=== PATIENT | female | born 1990 | race Caucasian/White ===

== ENCOUNTER 2017-06-26 17:21 | Emergency (ER) | payer MEDICAID, SELFPAY ==
[2017-06-26 17:23] VITALS: BP 113/56; PULSE 99; RESP 16; TEMP 37.1; O2SAT 99; BMI 28.5
[2017-06-26] MEDS: 0.9% Normal Saline 1,000 ML 250 ML IV (17:47)
[2017-06-26] MEDS: Ondansetron 4 MG/2 ML Vial IV (17:53)
[2017-06-26 17:57] LABS: Absolute Neutrophil Count 5.4 X10^3/uL (2.0-7.7); Basophil# 0.01 X10^3/uL; Basophil% 0.1 % (0-1); Eosinophil# 0.06 X10^3/uL; Eosinophils% 0.7 % (0-5); Hematocrit 37.7 % (37-47); Hemoglobin 12.1 g/dl (12.0-15.0); Lymphocyte % 22.4 % (19-41); Mean Corp Hgb Conc 32.1 g/gl (32-36); Mean Corpuscular Hgb 25.3 pg (27.0-32.0); Mean Corpuscular Volume 78.9 fL (81-99); Mean Platelet Vol. 11.1 fl (6.2-12.0); Monocyte# 0.74 X10^3/uL; Monocyte% 9.2 % (0-10); Neutrophil # 5.42 X10^3/uL (2.7-7.7); Neutrophil % 67.5 % (47-70); Platelet Count 216 K/mm3 (150-450); RBC Distribution Width CV 14.7 % (11.6-14.6); Red Blood Count 4.78 M/mm3 (4.2-5.4)
[2017-06-26 18:01] LABS: POSITIVE COUNT NO; POSITIVE DIFFERENTIAL NO; POSITIVE MORPHOLOGY NO
[2017-06-26 18:09] LABS: Red Blood Cells-Urine 0 SEEN /hpf (0-5)
[2017-06-26 18:21] LABS: Color, Urine Yellow (Yellow); Glucose, Dipstick Normal (Normal); Ketone-Dipstick Negative (Negative); Leukocyte Esterase-Dipstick 25 /ul (Negative); Nitrite-Dipstick Negative (Negative); Occult Blood-Urine 50 /ul (Negative); Protein-Dipstick Negative (Negative); Urine Bilirubin Dipstick Negative (Negative); Urine Clarity Sl. Cloudy (Clear); Urine Urobilinogen Normal (Normal)
[2017-06-26 18:33] LABS: AST(SGOT) 13 U/L (15-37); Alanine Aminotransfer ALT/SGPT 20 U/L (13-56); Albumin, Serum 3.9 g/dL (3.2-5.0); Alkaline Phosphatase 83 U/L (45-117); Anion Gap 8 (5-15); BUN 13 mg/dL (7-18); BUN/Creat Ratio 17.7 RATIO (10-20); Bilirubin, Direct < 0.05 mg/dL (0.00-0.30); Calcium,Total 8.7 mg/dL (8.5-10.1); Chloride 109 mmol/L (98-107); Creatinine, Serum 0.74 mg/dL (0.55-1.02); EST Glomerular Filtration Rate 102 mL/min (>60); Est Glom Filt Rate - Afr Amer 124 mL/min (>60); Globulin 3.6 g/dL (2.2-4.2); Glucose 93 mg/dL (74-106); Lipase 183 U/L (73-393); Potassium 3.8 mmol/L (3.5-5.1); Pregnancy, Serum, hCG Quali. NEGATIVE Negative (0-9 Nonpreg); Protein, Total 7.5 g/dL (6.4-8.2); Sodium Level 142 mmol/L (136-145); Total Bilirubin < 0.10 mg/dL (0.20-1.00)
--- NOTE | 2017-06-26 18:37 | ED.VISSUMM ---
- ER Visit Summary Date of Service: 06/26/17 Chief Complaint: Abdominal pain with nausea History of Present Illness: The patient is a 27 F who presents with upper abdominal pain and nausea for days. Pain is worse today. She does complain of frequency and breast tenderness. Last normal menstrual period 6-7 weeks ago. She states she normally has a period every 4 weeks. She also reports she has a implant right arm. She denies orthostatic symptoms. She denies fever, chills night sweats. She denies any visual, ocular auditory symptoms. She denies chest pain or palpitations. Denies shortness of breath, cough or dyspnea on exertion. She denies dysuria, urgency or hematuria. She does complain of back pain. She denies myalgias arthralgias. She denies rash. She denies headache, weakness, anesthesia, paresthesia or motor weakness. She denies polyuria, polydipsia or polyphagia. She denies bruising easily. She denies hives. She denies any vaginal bleeding or vaginal discharge. She states she has had pain with intercourse for 1 years since delivery of her child. Physical Examination: Vital signs are unremarkable. She appears slightly uncomfortable. Head is atraumatic normocephalic. Pupils are equal round reactive. Extraocular muscles are intact. TMs are pearly white with landmarks noted. Nares patent with no drainage. Posterior pharynx without erythema or exudate. Uvula is midline. There is no dysphonia or dysphasia. Trachea is midline. There is no stridor with auscultation of the neck. Heart is regular without murmur, gallop or rub. S1 and S2 are normal. Lungs are clear to auscultation with good movement of air bilaterally. Abdomen is remarkable for significant tenderness right and left upper quadrant with an equivocal clinical Farooq sign. There is also tenderness lower abdomen. There is no CVA tenderness noted. There is no skin lesions noted. Neuro exam is nonfocal. Test Results: CBC is normal other than an MCV of 78. BMP, hepatic and lipase normal. UA is unremarkable and a contaminated specimen. Serum test is negative. Emergency Department Course and Treatment: To evaluate patient's abdominal pain and the fact that she missed her last menses CBC, BMP, hepatic and lipase were ordered as well as a serum test. She was medicated with morphine and Zofran. Because she complains of frequency a UA was obtained. Patient was reassessed at 1851. She states she had no improvement after 4 mg of Zofran 4 mg of morphine IV push. She was given 20 mg of Bentyl. She was reassessed at 1941. She states her pain is markedly better. Treatment Plan: Prescription for Bentyl and outpatient follow-up with Dr. Mejia Disposition: Discharged to home in stable and improved condition Impression: Generalized abdominal pain of uncertain etiology This note was generated with Enbridge dictation software. It may contain incorrect words, spelling, and punctuation that were not noted in review of the chart prior to signing ED Disposition - Plan for ED Patient: Disposition: Home or Assisted Living Chief Complaint: Abd Pain Instructions: ED Abdominal Pain Unkn Cause Prescriptions: Dicyclomine HCl [Bentyl] 20 mg PO TIDAC #20 cap Referrals: Gume Mejia MD [Primary Care Provider] - 3-5 Days if not improving Additional Instructions: Your prescription was electronically transmitted to [facility]
[2017-06-26 18:47] LABS: Squamous Epithelial Cells - UA 5-10 SEEN /hpf (5-10); White Blood Cells 0-5 SEEN /hpf (0-5)
[2017-06-26 18:48] LABS: Bacteria 1+ /hpf (None Seen); Mucous, Urine 2+ /hpf (<or=2+)
[2017-06-26] MEDS: Dicyclomine 10 MG Capsule 20 MG PO (19:08)
[2017-06-26 19:59] VITALS: BP 114/90; PULSE 84; RESP 18; O2SAT 98
== END 2017-06-26 20:01 | disposition home or self-care (01) ==
PROVIDERS: Emergency Provider Emergency Medicine; Family Provider Family Medicine; PCP Family Medicine
DX: R10.84 Generalized abdominal pain (principal); R11.0 Nausea; R35.0 Frequency of micturition; F32.9 Major depressive disorder, single episode, unspecified; Z79.899 Other long term (current) drug therapy
CPT/HCPCS: 80048; 80076; 81001; 83690; 84703; 85025; 96361; 96374; 99283; J7030; A4216

== ENCOUNTER 2018-06-03 09:44 | Day surgery (SDC) | payer MEDICAID, SELFPAY ==
--- NOTE | 2018-05-19 12:59 | PCM.HP.BLA ---
History and Physical Date of Admission: 05/19/18 Pre-Op History and Physical HPI: The patient is a 27 year old female presenting for pre-operative visit. She is scheduled for laparascopic bilateral salpingectomy, for sterilization on 06/03/18. Procedure discussed along with risks, benefits and complications. Other alternatives discussed for management. Consent form signed? Yes. PAST MEDICAL HISTORY Diagnosis Date ? Anemia affecting 06/06/2014 ? Anxiety ? Panic disorder PAST SURGICAL HISTORY Procedure Laterality Date ? DELIVERY ONLY 08/24/14 , low transverse ? SECTION HX February 2013 ? HYSTEROSCOPY, DIAGNOSTIC (SEPARATE 12/12/2016 Hysteroscopy D&C, TruClear ? INSERTION OF IUD 02/2015 ? REMOVE IUD 06/2015 Current Outpatient Medications: Etonogestrel-Ethinyl Estradiol (NUVARING) 0.12-0.015 mg/24 hr vaginal ring Use 1 Each vaginally as directed. INSERT ONE(1) RING VAGINALLY AND LEAVE IN PLACE FOR THREE WEEKS, THEN REMOVE FOR 1 WEEK. Disp: 1 Each Rfl: 11 busPIRone (BUSPAR) 5 mg tablet Take 1 tablet by mouth three times daily. Disp: 90 tablet Rfl: 1 No current facility-administered medications for this visit. ALLERGIES: Latex; Tape [Adhesive Tape (Rosins)] PERSONAL HISTORY: Social History Socioeconomic History Marital status: Spouse name: Not on file Number of children: 2 Years of education: Not on file Highest education level: Not on file Social Needs Financial resource strain: Not on file Food insecurity - worry: Not on file Food insecurity - inability: Not on file Transportation needs - medical: Not on file Transportation needs - non-medical: Not on file Occupational History Not on file Tobacco Use Smoking status: Current Every Day Smoker Packs/day: 0.05 Smokeless tobacco: Never Used Substance and Sexual Activity Alcohol use: No Drug use: No Sexual activity: Yes Partners: Male control/protection: Other Comment: Nexplanon Other Topics Concerns: Not on file Social History Narrative Not on file FAMILY HISTORY: FAMILY HISTORY Problem Relation Age of Onset ? Diabetes Mother ? Arthritis Mother ? Heart Father Open heart surgery ? Diabetes Maternal Grandmother ? Diabetes Maternal Grandfather ? Heart Maternal Grandfather ? Pancreatic Cancer Maternal Grandfather ? Heart Paternal Grandmother ? Stroke Paternal Grandmother ? Pancreatic Cancer Paternal Grandfather ? Heart Daughter Murmer ? Asthma Son REVIEW OF SYMPTOMS: GENERAL: denies fevers or chills ENDOCRINOLOGY: has not been on steroids Cardiology : denies palpitations or chest pain Respiratory: denies SOB or cough Hematology: denies history of prolonged bleeding or easy bruising or VTE Allergy: Denies history of personal or family history of allergy to anesthesia PHYSICAL EXAMINATION: VITALS: Blood pressure 102/62, pulse 84, resp. rate 16, height 5' 2.75 (1.594 m), weight 152 lb (68.9 kg), last menstrual period 04/30/2018. GENERAL: The patient is well nourished, well hydrated in no acute distress. , The patient is oriented to time, place, and person. NECK: Supple. No lynphadenopathy, normal thyroid, no thyromegaly. LUNGS: Clear to auscultation bilaterally. no wheezes, rhonchi or rales HEART: Regular rate and rhythm, Normal heart sounds and No murmurs or gallops IMPRESSION: sterilization request PLAN: The risks/benefits/alternatives and personal involved for the planned laparoscopic bilateral salpingectomy were reviewed with the patient. Her questions were answered to her satisfaction and she desires to proceed. Consent was signed. I reviewed with her postop instructions and expectations. I have reviewed and updated past medical and surgical history, medications and allergies This H&P performed in my office 05/19/18 Earline Garcias M.D. No clinically relevant updates since entered
--- NOTE | 2018-06-03 | FALS_PTH ---
PATIENT: GOPI FRY LOC: [facility] [place] U#:[id number] AGE/SX: 27/ ROOM: RE06/03/[address]: Dr. Earline Garcias MD : 1990 BED: DIS: 06/03/2018 SPEC #: [id number] RECD: 06/03/18 13:11 STATUS: CHYNA ADELAIDA #: [id number] TALYA: 06/03/18 00:[address]: Earline Garcias DEPT: SURGICAL PATHOLOGY RECD BY: Jose Lee ENTERED: 06/03/18 13:12 SP TYPE: FALL TUBES OTHR DR: Dr. Gume Mejia MD Tissues: Fallopian tube Procedures: Surgery Specimen Level II HEADER OPERATION: Laparoscopic salpingectomy PRE-OP DIAGNOSIS: Sterilization request TISSUE SUBMITTED: Bilateral fallopian tubes MICROSCOPIC DIAGNOSIS Right and left fallopian tubes, bilateral salpingectomies: Two complete segments of fallopian tubes with no pathologic change. AM:artem 06/04/18 MICROSCOPIC DESCRIPTION Slides are reviewed. GROSS DESCRIPTION Received is one container labeled with the patient's name and designated bilateral fallopian tubes. The specimen consists of bilateral fallopian tubes including fimbrial ends. One fallopian tube measures 7 cm in length and 0.5 cm in diameter. The fimbrial end is identified. Sections reveal unremarkable cut surfaces. The second fallopian tube received in three pieces and measures 6 cm in length and up to 0.5 cm in diameter. The fimbrial end is identified. Sections reveal unremarkable cut surfaces. Research Staff Member sections are submitted in two cassettes with each cassette containing one fallopian tube. / SJ:artem 06/03/18 TC:4 CPT: 61696 x2
[2018-06-03 10:10] LABS: Internal QC Validated? YES +Cl - CLEAR BKGD; Pregnancy, Urine Negative Negative
[2018-06-03 10:14] LABS: Hematocrit 40.9 % (37-47); Hemoglobin 13.2 g/dl (12.0-15.0); Mean Corp Hgb Conc 32.3 g/gl (32-36); Mean Corpuscular Hgb 24.8 pg (27.0-32.0); Mean Corpuscular Volume 76.7 fL (81-99); Mean Platelet Vol. 11.6 fl (6.2-12.0); Platelet Count 252 K/mm3 (150-450); RBC Distribution Width CV 15.4 % (11.6-14.6); RBC Distribution Width SD 43.2 fl (35.1-43.9); Red Blood Count 5.33 M/mm3 (4.2-5.4); White Blood Count 7.4 K/mm3 (4.4-11.0)
[2018-06-03 10:17] LABS: Scan Indicated on CBC? Y/N NO
[2018-06-03 10:34] VITALS: BP 109/77; PULSE 91; RESP 16; O2SAT 98; BMI 28.0
[2018-06-03] MEDS: Bupivacaine 0.5% PF 10 ML VIAL (12:00)
--- NOTE | 2018-06-03 12:26 | PCM.OPRPT ---
Report of Operation Date of Procedure: 06/03/18 Pre-Operative Diagnosis: Sterilization request Post-Operative Diagnosis: Same Surgery/Procedure Performed:: Laparoscopic bilateral salpingectomy Description of Surgical Findings:: Normal-appearing uterus, tubes and ovaries. Otherwise unremarkable peritoneal cavity. sterile process coordinator: cari Turner ms3 Type of Anesthesia:: General Anesthesiologist: Tod Tolliver Special Medications: none Specimen's removed: Bilateral fallopian tubes Drains: None Estimated Blood Loss (mL): 10 Description of Procedure: The patient was taken to the operating room where she was prepped and draped in the dorsolithotomy position. A weighted speculum was placed in the vagina and the anterior lip of the cervix was grasped with a tenaculum. The Michelle uterine manipulator was placed and the remainder of the instruments were removed from the vagina. Attention was turned to the abdomen. All port sites were infiltrated with 0.5% Marcaine before skin incisions were made. A 5 mm intraumbilical incision was made. The anterior abdominal wall was tented up with 2 towel clamps while a 5 mm blade less trocar and sleeve were directly inserted. Intraperitoneal placement was confirmed with the laparoscope. The pneumoperitoneum was created and the underlying abdominal contents were intact. The patient was placed in Trendelenburg. Right and left lower quadrant ports were placed under direct visualization lateral to the inferior epigastric vessels. The bowel was swept away and the above findings were noted. The LigaSure device was used to clamp seal and transect the antimesenteric portions of the right tube to the cornual insertion of the uterus. The tube was amputated from the uterus and the pedicles were all confirmed to be hemostatic. The same procedure was performed on the contralateral side. The specimens were brought out through a 5 mm port. The pedicles were again examined and found to be hemostatic. The lateral ports were removed under direct visualization and no active bleeding was noted. The pneumoperitoneum was released. The skin incisions were closed with Monocryl suture in a subcuticular fashion and skin glue. The vaginal instruments were removed and the vaginal sweep was completed by me. The procedure was performed by me with assistance other than as dictated above. All sponge and needle counts were correct and the patient was taken to the recovery room in stable condition. Grafts/Implants Used: None - Complications None - Admit VTE Documentation VTE Present on Admission: No VTE Mechan Device Prophylaxis: SCD's VTE Pharm Prophylaxis ordered?: No Reason prophylaxis not ordered:: Procedure Not Indicated
[2018-06-03 12:30] VITALS: BP 109/77; BP 115/76; PULSE 96; RESP 28; TEMP 36.3; O2SAT 97
[2018-06-03 12:45] VITALS: BP 109/77; BP 115/72; PULSE 68; RESP 18; O2SAT 100
[2018-06-03 13:00] VITALS: BP 109/77; BP 114/70; PULSE 65; RESP 18; O2SAT 99
[2018-06-03] MEDS: Ketorolac 30 MG/ML Syringe IV (13:07)
[2018-06-03 13:14] VITALS: BP 109/77; BP 96/51; PULSE 66; RESP 18; TEMP 36.9; O2SAT 99
[2018-06-03] MEDS: HYDROcodone Bitartrate/Apap 5/325 Tablet PO (13:32)
--- NOTE | 2018-06-03 14:43 | DCINST_ITS ---
Discharge Diet: No Restrictions - Increase fluid intake for the next 48 hours. Discharge Activity: Return to Normal Activity, May Drive - when you are no longer taking pain/narcotic meds., May Shower, May Take a Tub Bath - in 7 days Additional Activity Instructions:: Ambulate often the next week after surgery. Nothing in the vagina for 5 days. Call your doctor if your incision/area has: Continuous Slow Oozing, Sudden Increased Bleeding, Increased Pain/ Swelling, Increased Redness, Foul Smelling Discharge Call your doctor if you observe: Fever of 101 or Higher Allergies/Adverse Reactions: Allergies adhesive Allergy (Verified 05/27/18 11:14) Rash latex Allergy (Verified 05/27/18 11:14) Hives TAPE Allergy (Uncoded 06/26/17 17:23) Other Medications to take at Discharge Hydroxyzine HCl 25 mg PO DAILY 05/27/18 Hydrocodone/Acetaminophen [Brinson 5-325 Tablet] 1 each PO Q6H PRN PRN 4 Days #12 tablet 06/03/18 Ibuprofen [Motrin] 600 mg PO Q6H PRN #60 tablet 06/03/18 The following prescriptions were given: Hydrocodone/Acetaminophen [Brinson 5-325 Tablet] 1 each PO Q6H PRN PRN 4 Days #12 tablet PRN Reason: Pain Ibuprofen [Motrin] 600 mg PO Q6H PRN #60 tablet PRN Reason: Pain Primary Care Physician: Gume Mejia MD [Primary Care Provider] - Test Results: Test results from this visit will be discussed in further detail at your follow- up appointment, if applicable. Please Follow Up With: Earline Garcias MD - [phone] When: Dr. Garcias's office 2-4 weeks or as needed
[2018-06-03 14:48] VITALS: BP 109/77; BP 112/65; PULSE 64; RESP 16; TEMP 36.8; O2SAT 98
== END 2018-06-03 14:51 | disposition home or self-care (01) ==
LOC: SDC 09:45 → AC 09:46
PROVIDERS: Family Provider Family Medicine; PCP Family Medicine; Referring Provider Obstetrics & Gynecology; Visit Provider Obstetrics & Gynecology
PROC: (CPT 58661; principal; 2018-06-03 10:55)
DX: Z30.2 Encounter for sterilization (principal); D64.9 Anemia, unspecified; F32.9 Major depressive disorder, single episode, unspecified; F41.9 Anxiety disorder, unspecified; F41.0 Panic disorder [episodic paroxysmal anxiety]; F17.200 Nicotine dependence, unspecified, uncomplicated; Z79.899 Other long term (current) drug therapy; Z87.442 Personal history of urinary calculi; Z87.440 Personal history of urinary (tract) infections
CPT/HCPCS: 58661; 36415; 81025; 85027; 88302; J7120; J2405

== ENCOUNTER 2021-03-12 08:55 | Outpatient (CLI) | payer MEDICAID, SELFPAY ==
[2021-03-12 10:46] LABS: Hematocrit 36.4 % (37-47); Hemoglobin 11.3 g/dL (12.0-15.0); Mean Corpuscular Hgb 23.6 pg (27.0-32.0); Mean Platelet Vol. 12.3 fl (6.2-12.0); Platelet Count 235 K/mm3 (150-450); RBC Distribution Width CV 16.2 % (11.6-14.6); RBC Distribution Width SD 45.2 fl (35.1-43.9); Red Blood Count 4.79 M/mm3 (4.2-5.4); White Blood Count 5.7 K/mm3 (4.4-11.0)
[2021-03-12 12:33] LABS: Estradiol 34.5 pg/mL; Follicle Stimulating Hormone 5.2 mIU/mL; Prolactin 7.1 ng/mL; T4 Free Direct 0.96 ng/dL (0.76-1.46); Thyroid Stim Hormone (TSH) 1.18 uIU/mL (0.358-3.74)
[2021-03-14 13:05] LABS: Testosterone Free 4.1 pg/mL (0.0-4.2)
== END 2021-03-12 23:59 | disposition short-term general hospital (02) ==
LOC: WOBLAB 08:57
PROVIDERS: PCP Family Medicine; Visit Provider Obstetrics & Gynecology
DX: N93.9 Abnormal uterine and vaginal bleeding, unspecified (principal)
CPT/HCPCS: 36415; 82670; 83001; 83002; 84146; 84402; 84439; 84443; 85027; 87086; 87088; 87186

== ENCOUNTER 2021-04-30 13:08 | Outpatient (CLI) | payer MEDICAID, SELFPAY ==
--- NOTE | 2021-04-30 | EMB_PTH ---
PATIENT: GOPI FRY LOC: [facility] U#:[id number] AGE/SX: 30/F ROOM: RE04/30/[address]: Dr. Frank Mckeon MD : 1990 BED: DIS: 04/30/2021 SPEC #: [id number] RECD: 04/30/21 13:38 STATUS: CHYNA REShira #: [id number] TALYA: 04/30/21 00:[address]: Frank Mckeon DEPT: SURGICAL PATHOLOGY RECD BY: Bernie Mendoza ENTERED: 04/30/21 13:38 SP TYPE: ENDOM BX/C RAHUL DR: Dr. Gume Mejia MD Tissues: Endometrium, NOS Procedures: Surgery Specimen Level IV HEADER OPERATION: Endometrial biopsy PRE-OP DIAGNOSIS: Abnormal uterine bleeding TISSUE SUBMITTED: Endometrial biopsy MICROSCOPIC DIAGNOSIS Endometrial biopsy: Proliferative endometrium. SJ:artem 05/01/2021 MICROSCOPIC DESCRIPTION Slides are reviewed. GROSS DESCRIPTION Received in fixative is one container labeled with the patient's name and designated endometrial biopsy. The specimen consists of multiple irregular fragments of pink soft tissue that in aggregate measure 2 x 2 x 0.2 cm. The specimen is totally submitted in one cassette. / SJ:artem 04/30/2021 TC:5 CPT: 40574
== END 2021-04-30 23:59 | disposition home or self-care (01) ==
LOC: LABSPEC 13:09
PROVIDERS: PCP Family Medicine; Visit Provider Obstetrics & Gynecology
DX: N93.9 Abnormal uterine and vaginal bleeding, unspecified (principal)
CPT/HCPCS: 88305

== ENCOUNTER 2021-08-26 06:48 | Day surgery (SDC) | payer MEDICAID, SELFPAY ==
[2021-08-26] VITALS (13 sets, daily range): BP systolic 96–126; BP diastolic 67–94; PULSE 68–102; RESP 16–20; TEMP 36.3–36.7; O2SAT 94–100; BMI 29.9
[2021-08-26] MEDS: Lactated Ringers 1,000 ML 15 ML IV (06:55)
--- NOTE | 2021-08-26 08:01 | PCM.HP.BLA ---
History and Physical Date of Admission: 08/26/21 Surgical History and Physical Date: 08/26/2021 Name: GOPI BARTHOLOMEW Age: 31 Date of : 1990 Gopi Bartholomew, a 31 year old female 2 0 2 0 2, presents for Hysteroscopy D, Endometrial ablation on 08/26/21 at 9;30. -- Gopi is here for a hysteroscopy D&C lindsay ablation. MEDICATIONS HISTORY: ALLERGIES: Latex, Generalized rash, Adhesive and Generalized rash Infections - Chicken pox Accidents - None Hospitalizations - surgery Review of Systems: GENERAL - Denies fever, or chills SKIN - Denies skin changes EYES - Denies visual changes EARS - Denies difficulty hearing NOSE - Denies nasal congestion or bleeding MOUTH - Denies sore throat or difficulty swallowing NECK - Denies pain or swelling RESPIRATORY - Denies shortness of breath or wheezing CARDIOVASCULAR - Denies palpitations or chest pain GASTROINTESTINAL - Denies nausea, vomiting, diarrhea, constipation GENITOURINARY - cramping MUSCULOSKELETAL - Denies joint or muscle pain NEUROLOGICAL - Denies localized numbness or weakness PSYCHIATRIC - Denies depression or anxiety ENDOCRINE - Denies heat or cold intolerance, weight loss or gain HEMATO-IMMUNOLOGIC - Denies excessive bleeding with cuts SOCIAL HISTORY: Alcohol Use - drinks occasionally Smoking - Advised to quit Diet - no special diet Lifestyle - high stress lifestyle Seat Belt Use - always 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 08/24/2014 csection ; - 2. 08/24/2014 csection ; - 3. 02/10/2018 cyst removal ; - 4. tubal 2019 ; - PHYSICAL EXAM BP- 122/66 Weight- 161.06192 lbs Height- 61 inch BMI:[id number] CONSTITUTIONAL - NAD, well nourished, and well developed SKIN - No rash, lesions, or ulcers HEENT - Normocephalic, PERRLA, EOMI NECK - No nodes, no nuchal rigidity and thyroid normal size and texture LYMPH NODES - Palpation of lymph nodes in neck and groins within normal limits ABDOMEN - Without hepatosplenomegaly, distention, masses, rebound, or guarding; normal bowel sounds; no hernias EXTREMITIES - No edema or calf tenderness NEUROLOGICAL - Cranial nerves II-XII grossly intact PSYCHIATRIC - A and O to time, place, person, mood and affect External Genital Vagina - non-tender without lesions Urethra/Urethral Meatus - non-tender Bladder - non-tender Vagina - vaginal mueller are pink and moist without loss of rugae and no evidence of atrophy Cervix - without cervical motion tenderness and has normal size and features without evident lesions Uterus - 5-6 cm in size, mobile and nontender Adnexa - clear without masses or tenderness ASSESSMENT/PLAN: 1. Abnormal Uterine And Vaginal Bleeding, Unspecified Patient with long history of abnormal uterine bleeding. Has menses been as bleeding midcycle. This is been worse since her Nexplanon was placed 3 years ago and removed 3 years ago. No other medical changes Educated patient on abnormal uterine bleeding. Patient believes she was diagnosed with PCOS years ago Exam benign. Labs within normal limits. Ultrasound within normal limits, polycystic ovaries EMB negative 2. Encounter For Other Preprocedural Examination Scheduled for hysteroscopy, dilation and curettage, endometrial ablation via Lindsay for abnormal uterine bleeding Educated patient on risk benefits alternatives. Patient stated understanding and wished to proceed. All questions were answered and consent was signed Educated patient on postoperative recovery. Discussed cramping and abnormal bleeding Follow-up 2 weeks postoperatively
--- NOTE | 2021-08-26 08:38 | DCINST_ITS ---
Discharge Instructions Diet Discharge Diet: No restrictions Activity Discharge Activity: Return to Normal Activity, May Drive and May Shower May resume sexual activity in: 4-6 weeks Weight Bearing Status: Weight bearing as tolerated Dressing / Incision Call your doctor if your incision/area has: Continuous Slow Oozing and Foul Smelling Discharge Call your doctor if you observe: Fever of 101 or Higher, Shortness of breath and Chest pain Follow Up Care Please Follow Up With: Frank Mckeon MD When: 2 weeks post op Test Results: Test results from this visit will be discussed in further detail at your follow- up appointment, if applicable. Discharge Plan Admission Attending Provider: Frank Mckeon Primary Care Provider: Gume Mejia Discharge Orders/Prescriptions Prescriptions: No Action NK Referrals / Follow Up: Gume Mejia MD [Primary Care Provider] - Disposition Disposition (needs filled in before D/C Order can be placed): Home, Self Care
--- NOTE | 2021-08-26 08:39 | PCM.OPRPT ---
Report of Operation Date of Procedure: 08/26/21 Pre-Operative Diagnosis: Abnormal uterine bleeding Post-Operative Diagnosis: Abnormal uterine bleeding Surgery/Procedure Performed:: Hysteroscopy, Kirsty endometrial ablation Description of Surgical Findings:: Surgeon: Frank Mckeon MD Anesthesia: MAC EBL: Minimal Urine output: 10 cc none IV fluids: 500 cc Specimen: None Complications: None Findings: Pre and Post procedure hysteroscopy with no pathology. Kirsty device set to 4.5 cm in length. Kirsty ablation for 2 minutes. Consent: Patient with abnormal uterine bleeding desires hysteroscopy, endometrial elation via Kirsty. Patient understands risk of the procedure include but are not limited to visceral or vascular injury, prolonged hospitalization, blood loss need for transfusion, reoperation. Patient states understanding and wished to proceed. All questions were answered and consent was signed. Procedure: Patient was brought back to the OR where MAC anesthesia was found to be adequate. Patient was prepared and draped in a dorsal lithotomy position with yellowfin stirrups. Weighted speculum was placed in the posterior aspect of the vagina. Cervical dilators were used to dilate the cervix. Hysteroscope was inserted and above findings were noted. Cavity length found to be 4.5 cm. Kirsty device opened and set to appropriate length. Kirsty device inserted under direct visualization. Kirsty endometrial ablation safety test passed x2. Kirsty endometrial ablation for 2 minutes. Kirsty device safely removed. Post procedure hysteroscopy performed and above findings were noted. Good hemostasis was noted. All counts were correct x2. Patient tolerated procedure well and was brought to recovery in stable condition.
[2021-08-26] MEDS: Acetaminophen 500 MG Tablet 1000 MG PO (09:34)
== END 2021-08-26 11:40 | disposition home or self-care (01) ==
LOC: SDC 06:52 → AC 06:53
PROVIDERS: PCP Family Medicine; Referring Provider Obstetrics & Gynecology; Visit Provider Obstetrics & Gynecology
PROC: 0U5B8ZZ Destruction of Endometrium, Via Natural or Artificial Opening Endoscopic (ICD-10-PCS; CPT 58558; principal; 2021-08-26 07:15)
DX: N93.9 Abnormal uterine and vaginal bleeding, unspecified (principal); E28.2 Polycystic ovarian syndrome
CPT/HCPCS: 58563; 00952; J7120; J2405

== ENCOUNTER → 2021-09-05 | Outpatient (CLI) | payer MEDICAID, SELFPAY | END | disposition home or self-care (01) | PROVIDERS: PCP Family Medicine; Visit Provider Obstetrics & Gynecology | DX: N76.0 Acute vaginitis (principal) ==

== ENCOUNTER 2022-05-05 01:12 | Emergency (ER) | payer MEDICAID, SELFPAY ==
[2022-05-05 01:13] VITALS: BP 121/89; PULSE 73; RESP 14; TEMP 36.9; O2SAT 99; BMI 33.3
[2022-05-05 01:56] LABS: Bedside Glucose 97 mg/dL (74-106)
--- NOTE | 2022-05-05 02:20 | EKG12_ITS ---
Test Reason : SYNCOPE Blood Pressure : / mmHG Vent. Rate : 062 BPM Atrial Rate : 062 BPM P-R Int : 150 ms QRS Dur : 082 ms QT Int : 414 ms P-R-T Axes : 038 057 036 degrees QTc Int : 420 ms Normal sinus rhythm with sinus arrhythmia Normal ECG Confirmed by OWEN MONACO, DON ([id number]), brands editor ISABELLA BOWER ([id number]) on 05/06/2022 8:41:08 AM Referred By: Confirmed By:DON WEAVER MD
--- NOTE | 2022-05-05 02:20 | CT_ITS ---
EXAM: CT HEAD WITHOUT INTRAVENOUS CONTRAST CLINICAL INDICATION: syncope TECHNIQUE: Multiple axial images were obtained of the head without intravenous contrast. This CT exam was performed using one or more of the following dose reduction techniques: automated exposure control, adjustment of the mA and/or kV according to patient size, and/or use of iterative reconstruction technique. This report was created using [employer] report generation technology. RADIATION DOSE: Total DLP: 890.33 mGy-cm. COMPARISON: None. FINDINGS: BRAIN AND EXTRA-AXIAL SPACES: Unremarkable. No intra- or extra-axial hemorrhage. No evidence of acute infarct. No intracranial mass or mass effect. There is preservation of the clarke/white matter interface. Posterior fossa structures are unremarkable. Ventricles are appropriate for age. No hydrocephalus. Basal cisterns are patent. BONES/JOINTS: Unremarkable. No discrete lytic or blastic abnormalities. No linear or depressed skull fracture. SINUSES: Unremarkable as visualized. Clear. MASTOID AIR CELLS: Unremarkable. Clear. ORBITS: Visualized globes, extraocular muscles, optic nerves and retrobulbar fat appear unremarkable. CT/Brain/Head without Contrast IMPRESSION: Negative head/brain CT without intravenous contrast. Electronically Signed: Nestor Kwok MD at 3:15 EDT ,
[2022-05-05 02:34] LABS: Mucous, Urine 0 SEEN /hpf (<or=2+); Red Blood Cells-Urine 0 SEEN /hpf (0-5); Squamous Epithelial Cells - UA 0 SEEN /hpf (5-10); White Blood Cells 0 SEEN /hpf (0-5)
[2022-05-05 02:34] LABS: Absolute Lymphocyte Count 1.79 X10^3/uL (0.83-4.51); Absolute Neutrophil Count 6.1 X10^3/uL (2.0-7.7); Basophil# 0.04 X10^3/uL; Basophil% 0.5 % (0-1); Eosinophil# 0.04 X10^3/uL; Eosinophils% 0.5 % (0-5); Hematocrit 44.4 % (37-47); Hemoglobin 13.9 g/dL (12.0-15.0); Lymphocyte # 1.79 X10^3/ul (0.83-4.51); Lymphocyte % 20.8 % (19-41); Mean Corp Hgb Conc 31.3 g/dL (32-36); Mean Corpuscular Hgb 27.1 pg (27.0-32.0); Mean Corpuscular Volume 86.7 fL (81-99); Mean Platelet Vol. 11.1 fl (6.2-12.0); Monocyte# 0.61 X10^3/uL; Monocyte% 7.1 % (0-10); NRBC Flagged by Analyzer 0 % (0-5); Neutrophil # 6.12 X10^3/uL (2.7-7.7); Neutrophil % 70.9 % (47-70); Platelet Count 282 K/mm3 (150-450); RBC Distribution Width CV 15.4 % (11.6-14.6); RBC Distribution Width SD 49.3 fl (35.1-43.9); Red Blood Count 5.12 M/mm3 (4.2-5.4); White Blood Count 8.6 K/mm3 (4.4-11.0)
[2022-05-05 02:40] LABS: Color, Urine Yellow (Yellow); Glucose, Dipstick Normal (Normal); Ketone-Dipstick Negative (Negative); Leukocyte Esterase-Dipstick Negative /ul (Negative); Nitrite-Dipstick Negative (Negative); Occult Blood-Urine 10 /ul (Negative); Protein-Dipstick Negative (Negative); Urine Bilirubin Dipstick Negative (Negative); Urine Clarity Clear (Clear); Urine Urobilinogen Normal (Normal)
--- NOTE | 2022-05-05 02:55 | RAD_ITS ---
EXAM: XR CHEST, 1 VIEW CLINICAL INDICATION: syncope TECHNIQUE: Frontal view of the chest. This report was created using [employer] report generation technology. COMPARISON: None. FINDINGS: LUNGS AND PLEURAL SPACES: Unremarkable. No consolidation or edema. No pneumothorax. No effusion. HEART: Unremarkable. Cardiac silhouette not enlarged. Normal pulmonary vasculature. MEDIASTINUM: Central airways and mediastinal contour are unremarkable. Thoracic aorta is not elongated. BONES/JOINTS: No acute osseous abnormality. SOFT TISSUES: Unremarkable. RAD/Chest 1 View (Portable) IMPRESSION: No radiographic evidence of acute cardiopulmonary disease. Electronically Signed: Nestor Kwok MD at 3:41 EDT ,
[2022-05-05 02:56] LABS: Alcohol, Blood (Medical)-Serum < 3.0 mg/dL
[2022-05-05 02:57] LABS: Anion Gap 5 (5-15); BUN 12 mg/dL (7-18); BUN/Creat Ratio 14.5 RATIO (10-20); Calcium,Total 9.3 mg/dL (8.5-10.1); Chloride 108 mmol/L (98-107); Creatinine, Serum 0.83 mg/dL (0.55-1.02); EST Glomerular Filtration Rate 86 mL/min (>60); Est Glom Filt Rate - Afr Amer 104 mL/min (>60); Estimated Creatinine Clearance 75.47 ml/min; Glucose 99 mg/dL (74-106); Magnesium 2.1 mg/dL (1.6-2.6); Potassium 3.5 mmol/L (3.5-5.1); Sodium Level 139 mmol/L (136-145); Thyroid Stim Hormone (TSH) 2.64 uIU/mL (0.358-3.74)
[2022-05-05 02:59] LABS: Bacteria 1+ /hpf (None Seen)
[2022-05-05 03:00] LABS: Internal QC Validated? YES +Cl - CLEAR BKGD; Pregnancy, Urine Negative Negative
[2022-05-05 03:08] LABS: Amphetamine Urine VISTA NEGATIVE (<1000 ng/mL); Barbiturate Urine VISTA NEGATIVE (< 200 ng/mL); Benzodiazepine Urine VISTA NEGATIVE (< 200 ng/mL); Cocaine Urine VISTA NEGATIVE (< 300 ng/mL); Ecstacy Urine VISTA NEGATIVE (< 500 ng/mL); Methadone Urine VISTA NEGATIVE (< 300 ng/mL); PCP Urine VISTA NEGATIVE (< 25 ng/mL); THC Urine VISTA NEGATIVE (< 50 ng/mL); Vista UDS pH Range 6
[2022-05-05 03:13] VITALS: BP 115/76; PULSE 70; RESP 15; O2SAT 98
[2022-05-05 03:15] LABS: Lactic Acid 1.2 mmol/L (0.4-1.9)
[2022-05-05 03:41] VITALS: BP 115/76; PULSE 70; RESP 15; O2SAT 98
--- NOTE | 2022-05-05 03:41 | EX.ED.DYSGE1 ---
HPI History of Present Illness Chief Complaint: Syncope Narrative Narrative: Patient is a 31-year-old female with past medical history of anxiety and depression who takes Cymbalta and occasional Ativan. 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 They told her to lie down and then patient remembers waking up in the ambulance with reported syncopal event. Patient denies any family history of cardiac disease at a young age she denies any history of cardiac dysrhythmia and she states that there is no history of seizure disorder. However secondary to the possible syncopal event versus seizure she was brought in for evaluation [facility] Medical History (Updated 05/05/22 @ 03:[address] Rajinder Jose, DO) Anemia Anxiety Back pain DNS (deviated nasal septum) Gastric reflux Leg cramps Migraine headache Shortness of breath on exertion Smoker Wears glasses Home Medications NK 07/04/21 [History Last Taken Unknown] Allergy/AdvReac Type Severity Reaction Status Date / Time adhesive Allergy Rash Verified 05/05/22 01:22 adhesive tape [tape] Allergy NEEDS Verified 05/05/22 01:22 FOLLOW-UP latex Allergy Hives Verified 05/05/22 01:22 Surgical History Hx of section Hx of ovarian cystectomy Hx of tubal ligation Social History (Updated 04/20/17 @ 13:15 by Konrad BERNARDO, PA) Smoking Status: Current every day smoker tobacco type: cigarettes ROS ROS ED Constitutional Constitutional ED: Denies chills or fever(s) Eyes Eyes: Denies change in vision ENT ENT ED: Denies sore throat Cardiovascular Cardiovascular: Denies chest pain, palpitations or racing heartbeat Respiratory/Chest Respiratory/Chest: Denies cough or dyspnea Gastrointestinal Gastrointestinal: Reports nausea; Denies abdominal pain, diarrhea or vomiting Genitourinary Genitourinary ED: Denies dysuria or hematuria Musculoskeletal Musculoskeletal: Reports myalgias; Denies back pain or neck pain Integumentary Denies rash Neurologic Neurologic: Reports headache(s) and weakness; Denies paresthesias Psychiatric Psychiatric: Reports anxiety and depression Hematologic/Lymphatic Hematologic/Lymphatic: Denies easy bleeding or easy bruising EXAM Physical Exam Const Vital Signs: 05/05/22 01:13 05/05/22 01:23 05/05/22 03:13 Temperature 98.5 F Temperature Source Temporal Pulse Rate 73 70 Respiratory Rate 14 15 Respiratory Effort Normal Non-Labored Respiratory Pattern Normal Blood Pressure 121/89 H 115/76 Blood Pressure Mean 99 89 Pulse Ox 99 98 Oxygen Delivery Method Room Air Room Air Positive well nourished, well developed and obese General Appearance ED: well developed Nutritional Appearance: obese HEENT Reports moist mucous membranes HEENT Narrative: Normocephalic atraumatic No signs of infection in the posterior pharynx No tongue or cheek biting present Eyes PERRL and EOMs intact bilaterally Neck supple Neck Narrative: No bony deformity or step-off of the cervical spine no midline pain with palpation No nuchal rigidity or meningeal signs noted Chest Wall palpation of chest normal Chest Narrative: No bony deformity or crepitance Resp normal respiratory effort and clear to auscultation bilaterally Cardio regular rate and regular rhythm Rate: other Other Details: Radial pulses are plus 2 out of 4 bilaterally are equal and symmetric GI normal to inspection, nondistended, normoactive bowel sounds, non-tender, non-distended and no masses GI Narrative: No voluntary guarding or rigidity no pulsatile mass Auscultation: normoactive bowel sounds Palpation: soft Extremity normal to inspection Neuro oriented x3 and CN's II-XII intact bilaterally Neuro Narrative: Cranial nerves II through XII are grossly intact there are no focal neurologic deficits. No pronator drift no dysmetria no truncal ataxia. NIH stroke scale score of 0 Sensorium / Orientation: alert Psych Psych Narrative: Patient has a flat affect Skin no rashes or lesions noted MDM MDM MDM Narrative Medical decision making narrative: Patient presented to the ER with stable vitals and awake and alert with normal neurologic exam. Her history was she did not feel well and then remembers waking up on the ambulance and there is concern for syncope versus seizure or even an infectious process or possible drug overdose. Patient states she has not taken her benzodiazepine recently and she states she has not missed any doses of her SSRI to go withdrawal. However with this concern of syncope versus seizure versus possible overdose or withdrawal symptoms basic work-up was obtained and a head CT was added as well. Labs revealed no clinically significant findings and head CT revealed no intracranial pathology. Patient was watched in the ER and hydrated and after informed the patient of her results she was able to ambulate and walk with steady gait. Therefore at this time as patient has no obvious signs of underlying intracranial injury infectious process acute kidney injury overdose or seizure activity she is safe for discharge History & Record Review Discussion w/independent historian: EMS personnel, Patient and Family Lab Data Attestation: I reviewed the patient's lab results. Labs: Laboratory Results - last 24 hr 05/05/22 05/05/22 05/05/22 01:37 01:50 01:50 WBC 8.6 RBC 5.12 Hgb 13.9 Hct 44.4 MCV 86.7 MCH 27.1 MCHC 31.3 L RDW Std Deviation 49.3 H RDW Coeff of Trish 15.4 H Plt Count 282 MPV 11.1 Immature Gran % (Auto) 0.200 Neut % (Auto) 70.9 H Lymph % (Auto) 20.8 [place] % (Auto) 7.1 Eos % (Auto) 0.5 Baso % (Auto) 0.5 Absolute Neuts (auto) 6.1 Absolute Lymphs (auto) 1.79 Nucleated RBC % 0 Sodium 139 Potassium 3.5 Chloride 108 H Carbon Dioxide 26.0 Anion Gap 5 BUN 12 Creatinine 0.83 Estim Creat Clear Calc 75.47 Est GFR (MDRD) Af Amer 104 Est GFR (MDRD) Non-Af 86 BUN/Creatinine Ratio 14.5 Glucose 99 Lactic Acid Calcium 9.3 Magnesium 2.1 TSH 2.64 Urine Color Urine Clarity Urine pH Ur Specific Newman Urine Protein Urine Glucose (UA) Urine Ketones Urine Occult Blood Urine Nitrite Urine Bilirubin Urine Urobilinogen Ur Leukocyte Esterase Urine RBC Urine WBC Ur Squamous Epith Cells Urine Bacteria Urine Mucus Urine Test Urine Opiates Screen Urine Methadone Screen Ur Barbiturates Screen Ur Phencyclidine Scrn Ur Amphetamines Screen MDMA (Ecstasy) Screen U Benzodiazepines Scrn Urine Cocaine Screen U Cannabinoids Screen Ur Drug Screen Comment Ethyl Alcohol POC Glucose 97 05/05/22 05/05/22 05/05/22 01:50 02:30 02:30 WBC RBC Hgb Hct MCV MCH MCHC RDW Std Deviation RDW Coeff of Trish Plt Count MPV Immature Gran % (Auto) Neut % (Auto) Lymph % (Auto) [place] % (Auto) Eos % (Auto) Baso % (Auto) Absolute Neuts (auto) Absolute Lymphs (auto) Nucleated RBC % Sodium Potassium Chloride Carbon Dioxide Anion Gap BUN Creatinine Estim Creat Clear Calc Est GFR (MDRD) Af Amer Est GFR (MDRD) Non-Af BUN/Creatinine Ratio Glucose Lactic Acid Calcium Magnesium TSH Urine Color Yellow Urine Clarity Clear Urine pH 7.0 Ur Specific Newman 1.010 Urine Protein Negative Urine Glucose (UA) Normal Urine Ketones Negative Urine Occult Blood 10 H Urine Nitrite Negative Urine Bilirubin Negative Urine Urobilinogen Normal Ur Leukocyte Esterase Negative Urine RBC 0 SEEN Urine WBC 0 SEEN Ur Squamous Epith Cells 0 SEEN Urine Bacteria 1+ Urine Mucus 0 SEEN Urine Test Negative Urine Opiates Screen NEGATIVE Urine Methadone Screen NEGATIVE Ur Barbiturates Screen NEGATIVE Ur Phencyclidine Scrn NEGATIVE Ur Amphetamines Screen NEGATIVE MDMA (Ecstasy) Screen NEGATIVE U Benzodiazepines Scrn NEGATIVE Urine Cocaine Screen NEGATIVE U Cannabinoids Screen NEGATIVE Ur Drug Screen Comment Ethyl Alcohol < 3.0 POC Glucose 05/05/22 02:35 WBC RBC Hgb Hct MCV MCH MCHC RDW Std Deviation RDW Coeff of Trish Plt Count MPV Immature Gran % (Auto) Neut % (Auto) Lymph % (Auto) [place] % (Auto) Eos % (Auto) Baso % (Auto) Absolute Neuts (auto) Absolute Lymphs (auto) Nucleated RBC % Sodium Potassium Chloride Carbon Dioxide Anion Gap BUN Creatinine Estim Creat Clear Calc Est GFR (MDRD) Af Amer Est GFR (MDRD) Non-Af BUN/Creatinine Ratio Glucose Lactic Acid 1.2 Calcium Magnesium TSH Urine Color Urine Clarity Urine pH Ur Specific Newman Urine Protein Urine Glucose (UA) Urine Ketones Urine Occult Blood Urine Nitrite Urine Bilirubin Urine Urobilinogen Ur Leukocyte Esterase Urine RBC Urine WBC Ur Squamous Epith Cells Urine Bacteria Urine Mucus Urine Test Urine Opiates Screen Urine Methadone Screen Ur Barbiturates Screen Ur Phencyclidine Scrn Ur Amphetamines Screen MDMA (Ecstasy) Screen U Benzodiazepines Scrn Urine Cocaine Screen U Cannabinoids Screen Ur Drug Screen Comment Ethyl Alcohol POC Glucose Radiography Diagnostic Testing: Clinical Impression(s) from Imaging Studies Brain CT 05/05/22 02:20 IMPRESSION: Negative head/brain CT without intravenous contrast. Electronically Signed: Nestor Kwok MD at 3:15 EDT , Chest X-Ray 05/05/22 02:55 IMPRESSION: No radiographic evidence of acute cardiopulmonary disease. Electronically Signed: Nestor Kwok MD at 3:41 EDT , Chest x-ray as interpreted by the emergency medicine physician reveals no acute infiltrate pneumothorax or pleural effusion Discharge Plan Triage Chief Complaint: Syncope Other Complaint: Lower Extremity Injury ED Provider: Rajinder Jose Dx/Rx/DC Orders Clinical Impression: Syncope Instructions: Causes of Syncope, Diagnosing Syncope Prescriptions: No Action NK Stand Alone Forms: ED Work / School Excuse Primary Care Provider: Gume Mejia Referrals: Gume Mejia MD [Primary Care Provider] - Activity Restrictions/Additional Instructions: Your work-up today showed no signs of abnormal heart rhythm neurologic event or heart damage or overt infection. Keep yourself well-hydrated and follow-up with your family doctor to discuss further work-up for your syncopal event and return to the ER should you have any further concerns Disposition Disposition: Home, Self Care Discharge Date/Time: 05/05/22 03:56
== END 2022-05-05 03:56 | disposition home or self-care (01) ==
PROVIDERS: Emergency Provider Emergency Medicine; PCP Family Medicine; Visit Provider Emergency Medicine
DX: R55 Syncope and collapse (principal); F17.210 Nicotine dependence, cigarettes, uncomplicated; F41.9 Anxiety disorder, unspecified; F32.A Depression, unspecified; E66.9 Obesity, unspecified; Z79.899 Other long term (current) drug therapy
CPT/HCPCS: 70450; 71045; 80048; 80307; 81001; 81025; 82077; 82962; 83605; 83735; 84443; 85025; 93005; 99285; J7030; A4216

== ENCOUNTER 2022-05-17 03:39 | Emergency (ER) | payer MEDICAID, SELFPAY ==
[2022-05-17 03:42] VITALS: BP 140/76; PULSE 81; RESP 20; TEMP 36.6; O2SAT 97; BMI 31.7
[2022-05-17 03:48] VITALS: BP 140/76; PULSE 81; RESP 20; TEMP 36.6; O2SAT 97
--- NOTE | 2022-05-17 04:32 | EDS_ITS ---
HPI HPI - URI History of Present Illness Chief Complaint: Ear Problem Informant: patient Onset/Context/Timing Onset: Yesterday Context: Gradual Onset Timing: Continuous Quality: Throbbing, stabbing Location: Left ear Worsened by: - (Nothing) Relieved by: - (Nothing) Associated Symptoms Associated Symptoms: Positive for Headache and Nausea; Negative for Nasal Congestion, Sinus Pressure, Myalgias, Vomiting, Diarrhea, Shortness of Breath, Chest Pain, Nonproductive cough, Hemoptysis or Productive Cough Narrative Narrative: Patient presents with left ear pain that began yesterday. Patient states it is gradually gotten worse. Patient states it is throbbing and stabbing at times. Patient states the pain is localized to the left ear. Patient states she did a sinus rinse yesterday which seemed to trigger the pain in her ear. Patient admits to a mild headache. Patient admits to nausea but denies any vomiting. Patient denies any shortness of breath or cough. Patient denies any chest pain. Patient denies any fevers or chills. ROS ROS ED Constitutional Constitutional ED: Denies chills or fever(s) Eyes Eyes: Denies blurry vision or change in vision ENT ENT ED: Reports ear pain left; Denies rhinorrhea or sore throat Cardiovascular Cardiovascular: Denies chest pain or palpitations Respiratory/Chest Respiratory/Chest: Denies cough or dyspnea Gastrointestinal Gastrointestinal: Denies nausea or vomiting Genitourinary Genitourinary ED: Denies dysuria or hematuria Musculoskeletal Musculoskeletal: Denies back pain or neck pain Integumentary Denies abscess or rash Neurologic Neurologic: Reports headache(s); Denies weakness Allergic/Immunologic Allergic/Immunologic ED: Denies mouth swelling or urticaria [facility] Medical History Anemia Anxiety Back pain DNS (deviated nasal septum) Gastric reflux Leg cramps Migraine headache Shortness of breath on exertion Smoker Wears glasses Home Medications ciprofloxacin 0.2 %-hydrocortisone 1 % ear drops,suspension (Cipro HC) 3 drp LEFT EAR BID 7 days #10 mL 05/17/22 [Rx Last Taken Unknown] Allergy/AdvReac Type Severity Reaction Status Date / Time adhesive Allergy Rash Verified 05/05/22 01:22 adhesive tape [tape] Allergy NEEDS Verified 05/05/22 01:22 FOLLOW-UP latex Allergy Hives Verified 05/05/22 01:22 Surgical History Hx of section Hx of ovarian cystectomy Hx of tubal ligation Social History Smoking Status: Current every day smoker tobacco type: cigarettes EXAM Physical Exam Const Vital Signs: 05/17/22 03:42 05/17/22 03:48 Temperature 97.9 F 97.9 F Temperature Source Oral Oral Pulse Rate 81 81 Respiratory Rate 20 H 20 H Blood Pressure 140/76 H 140/76 H Blood Pressure Mean 97 97 Pulse Ox 97 97 Oxygen Delivery Method Room Air Room Air Positive well nourished and well developed General Appearance ED: well developed and NAD HEENT Reports moist mucous membranes HEENT Narrative: The left external auditory canal is edematous and erythematous. There is pain with manipulation of the external ear. The left tympanic membrane was unable to be visualized due to the pain and swelling. The right tympanic membrane and external auditory canal is clear. normocephalic and atraumatic Throat: posterior oropharynx normal Neck no lymphadenopathy, supple, no meningeal signs and no JVD Neuro oriented x3, CN's II-XII intact bilaterally and no sensory deficits noted Sensorium / Orientation: alert Motor Exam: strength 5/5 throughout Psych mental status grossly normal MDM MDM MDM Narrative Medical decision making narrative: Patient was advised that this is from a left otitis externa. Patient was given a dose of hydrocodone here. Patient was given a prescription for Cipro HC otic suspension. Patient was instructed to follow-up with her primary care physician in 5 to 7 days. Patient understood and was agreeable with the plan. All questions were answered. Discharge Plan Triage Chief Complaint: Ear Problem ED Provider: Adan Sales Dx/Rx/DC Orders Clinical Impression: Left otitis externa Instructions: ED External Ear Infection (Adult) Prescriptions: New Cipro HC 0.2-1 % drops,suspension 3 drp LEFT EAR BID 7 Days Qty: 10 0RF Primary Care Provider: Gume Mejia Referrals: Gume Mejia MD [Primary Care Provider] - 3-5 Days Disposition Disposition: Home, Self Care
[2022-05-17] MEDS: HYDROcodone Bitartrate/Apap 5/325 Tablet PO (04:48)
== END 2022-05-17 04:51 | disposition home or self-care (01) ==
LOC: ED 04:46
PROVIDERS: Emergency Provider Emergency Medicine; PCP Family Medicine; Visit Provider Emergency Medicine
DX: H60.92 Unspecified otitis externa, left ear (principal); R11.0 Nausea; R51.9 Headache, unspecified; F17.210 Nicotine dependence, cigarettes, uncomplicated
CPT/HCPCS: 99282

== ENCOUNTER 2023-06-07 09:14 | Emergency (ER) | payer MEDICAID, SELFPAY ==
[2023-06-07 09:15] VITALS: BP 138/95; PULSE 115; RESP 18; TEMP 36.9; O2SAT 97; BMI 34.2
--- NOTE | 2023-06-07 09:35 | RAD_ITS ---
STUDY: X-RAY - RIGHT ANKLE REASON FOR EXAM: Female, 32 years old. Pain after trauma TECHNIQUE: 3 view(s) of the ankle. COMPARISON: None. FINDINGS: Normal visualized distal tibia and fibula. Normal medial and lateral malleoli. Normal tibiotalar articulation and ankle mortise. Normal visualized talus and calcaneus. The visualized subtalar, talonavicular, calcaneocuboid and tarsal articulations are normal. The soft tissue structures are unremarkable. RAD/Ankle min 3 Views IMPRESSION: Normal x-ray examination of the ankle. Electronically Signed: Juice Tabor MD at 9:59 EDT ,
[2023-06-07] MEDS: Ibuprofen 600 MG Tablet PO (09:52)
--- NOTE | 2023-06-07 09:54 | ED.VIS.LOWEX ---
HPI History of Present Illness Chief Complaint: Lower Extremity Injury Informant: patient Narrative Narrative: Patient injured her right ankle yesterday when she was coming out of her shed and missed a step. She inverted the foot. She has been able to bear weight ever since then, but with pain. Pain is laterally. No other injuries. [facility] Medical History Anemia Anxiety Back pain DNS (deviated nasal septum) Gastric reflux Leg cramps Migraine headache Shortness of breath on exertion Smoker Wears glasses Home Medications ciprofloxacin 0.2 %-hydrocortisone 1 % ear drops,suspension (Cipro HC) 3 drp LEFT EAR BID 7 days #10 mL 05/17/22 [Rx Last Taken Unknown] Allergy/AdvReac Type Severity Reaction Status Date / Time adhesive Allergy Rash Verified 06/07/23 09:15 adhesive tape [tape] Allergy NEEDS Verified 06/07/23 09:15 FOLLOW-UP latex Allergy Hives Verified 06/07/23 09:15 Surgical History Hx of section Hx of ovarian cystectomy Hx of tubal ligation Social History Smoking Status: Current every day smoker tobacco type: cigarettes ROS ROS ED Constitutional Constitutional ED: Denies chills or fever(s) Musculoskeletal Musculoskeletal: Reports extremity pain; Denies neck pain Integumentary Denies Abrasions, rash or wounds Neurologic Neurologic: Denies paresthesias or weakness EXAM Physical Exam Const Vital Signs: 06/07/23 09:15 Temperature 98.4 F Temperature Source Temporal Pulse Rate 115 H Respiratory Rate 18 Blood Pressure 138/95 H Blood Pressure Mean 109 Pulse Ox 97 Oxygen Delivery Method Room Air Positive well nourished and well developed General Appearance ED: well developed and NAD Neck full ROM and supple Back/Spine normal ROM and normal to inspection Extremity Extremity Narrative: Tenderness right lateral malleolus, nontender base of the fifth metatarsal, medial malleolus, proximal fibula. Good range of motion limited at extremes due to pain with regards to plantarflexion dorsiflexion. Neurovascular intact distally no other foot tenderness. Neuro oriented x3, no focal motor deficits and no sensory deficits noted Sensorium / Orientation: alert Psych mental status grossly normal and thought process normal Skin no wounds Rashes: no rashes MDM MDM MDM Narrative Medical decision making narrative: Three-view x-ray series of the right ankle negative on my interpretation for fracture dislocation. Radiology in agreement. Patient was given an Aircast as well as ibuprofen, she states she can walk okay without crutches, although they were offered. Given appropriate discharge instructions. Radiography Diagnostic Testing: Clinical Impression(s) from Imaging Studies Ankle X-Ray 06/07/23 09:35 IMPRESSION: Normal x-ray examination of the ankle. Electronically Signed: Juice Tabor MD at 9:59 EDT , Discharge Plan Triage Chief Complaint: Lower Extremity Injury ED Provider: Morgan Cardenas Dx/Rx/DC Orders Clinical Impression: Right ankle sprain Instructions: ED Sprain Ankle W X Ray Prescriptions: No Action Cipro HC 0.2-1 % drops,suspension 3 drp LEFT EAR BID 7 Days Qty: 10 0RF Primary Care Provider: Gume Mejia Referrals: Gume Mejia MD [Primary Care Provider] - 10-14 Days if not better Disposition Disposition: Home, Self Care
[2023-06-07 10:56] VITALS: BP 127/66; PULSE 82; RESP 15; TEMP 36.3; O2SAT 98
== END 2023-06-07 10:56 | disposition home or self-care (01) ==
PROVIDERS: Emergency Provider Emergency Medicine; PCP Family Medicine; Visit Provider Emergency Medicine
DX: S93.401A Sprain of unspecified ligament of right ankle, initial encounter (principal); X50.1XXA Overexertion from prolonged static or awkward postures, initial encounter; F17.210 Nicotine dependence, cigarettes, uncomplicated
CPT/HCPCS: 73610; 99283

== ENCOUNTER → 2023-09-23 | Outpatient (CLI) | payer MEDICAID, SELFPAY ==
[2023-09-28 10:07] LABS: HPV APTIMA, High Risk Negative (Negative)
== END | disposition home or self-care (01) ==
LOC: LABSPEC 12:05
PROVIDERS: PCP Family Medicine; Referring Provider Nurse Practitioner Family; Visit Provider Nurse Practitioner Family
DX: Z12.4 Encounter for screening for malignant neoplasm of cervix (principal)
CPT/HCPCS: 87624; 88175; G0145

== ENCOUNTER → 2023-09-25 | Outpatient (CLI) | payer MEDICAID, SELFPAY ==
--- NOTE | 2023-09-25 10:52 | US_ITS ---
STUDY: ULTRASOUND OF THE FEMALE PELVIS - COMPLETE REASON FOR EXAM: Female, 33 years old. PAIN -- RT PELVIC PAIN -- HX OF PCOS LMP: August 16, 2023. TECHNIQUE: Transabdominal and Transvaginal TECHNICAL QUALITY: Adequate. COMPARISON: None. FINDINGS: The uterus is anteverted and is in a midline position. The uterus measures 8.6 cm x 5.1 cm x 3.8 cm. Normal uterine cervix. The endometrium measures 6 mm in thickness, and is hyperechoic. There is no demonstrated endometrial mass. There is no demonstrated myometrial mass. I.U.D. - The patient does not have an I.U.D. The right ovary is visualized. The right ovary measures 2.9 cm x 2.9 cm x 2.3 cm. There is no right ovarian cyst or ovarian mass. There is no visualized right adnexal mass or complex lesion. There is normal arterial and normal venous vascularity. The left ovary is visualized. The left ovary measures 2.8 cm x 3.1 cm x 2.2 cm. There is no left ovarian cyst or ovarian mass. There is no visualized left adnexal mass or complex lesion. There is normal arterial and normal venous vascularity. There is no fluid in the cul-de-sac. US/Pelvic w/ Transvaginal IMPRESSION: Normal female pelvis. Electronically Signed: Grabiel Benites MD at 15:50 EDT ,
== END | disposition home or self-care (01) ==
LOC: US 08:55
PROVIDERS: PCP Family Medicine; Referring Provider Nurse Practitioner Family; Visit Provider Nurse Practitioner Family
DX: E28.2 Polycystic ovarian syndrome (principal); R10.9 Unspecified abdominal pain
CPT/HCPCS: 76830; 76856

== ENCOUNTER 2023-12-25 10:23 | Day surgery (SDC) | payer SELFPAY ==
[2023-12-25] VITALS (13 sets, daily range): BP systolic 90–120; BP diastolic 57–96; PULSE 70–91; RESP 16–20; TEMP 36.1–36.9; O2SAT 91–100; BMI 31.8
--- NOTE | 2023-12-25 | HYST_PTH ---
PATIENT: GOPI FRY LOC[place] [facility] [place][id number] AGE/SX: 33/F ROOM: RE12/25/[address]: Dr. Kiara Huynh DO : 1990 BED: DIS: 12/25/2023 SPEC #: [id number] RECD: 12/25/23 16:52 STATUS: CHYNA SNO #: [id number] TALYA: 12/25/23 00:[address]: Kiara Huynh DEPT: SURGICAL PATHOLOGY RECD BY: Jose Lee ENTERED: 12/28/23 07:58 SP TYPE: HYSTERECT OTHR DR: Dr. Gume Mejia MD Tissues: Uterus, NOS Procedures: Surgery Specimen Level V HEADER OPERATION: Laparoscopic robotic hysterectomy, cystoscopy PRE-OP DIAGNOSIS: Pelvic pain, menorrhagia, polycystic ovarian syndrome TISSUE SUBMITTED: Uterus, cervix MICROSCOPIC DIAGNOSIS Uterus and cervix, hysterectomy: Cervix - Mild chronic inflammation. Endometrium - Proliferative endometrium. Myometrium - Focal adenomyosis. . 12/29/2023 MICROSCOPIC DESCRIPTION Slides are reviewed. GROSS DESCRIPTION Received in fixative is one container labeled with the patient's name and designated uterus, cervix. The uterus with cervix weighs 89 gm and measures 9.0 x 4.0 x 4.5cm. The serosal surface is ram, smooth and glistening. The ectocervical mucosa is unremarkable. The cervical os is patent and 0.5cm in diameter. The endocervical canal measures 2.0 cm in length and the endocervical mucosa is unremarkable. The slit-like endometrial cavity measures 3.0 cm in length and 0.5 cm in width. The endometrium is red and measures 0.1 cm in thickness. No gross endometrial lesions are identified. No gross myometrial lesions are identified. [employer] sections are submitted in eight cassettes as follows: 1 - posterior cervix, 2 - anterior cervix, 3-5 - posterior endomyometrium, 6-8 - anterior endomyometirum. 12/28/2023 TC:5 CPT: 83901
--- NOTE | 2023-12-25 10:45 | PCM.HP.BLA ---
History and Physical Date of Admission: 12/25/23 Intake Vital Signs 10/15/2415:12 12/11/2415:01 Height 5 ft 2 in 5 ft 2 in Weight: 177 lb 8 oz BMI 32.4 BP 117/84 H Intake Visit Reasons: TRH left ooph cysto [place] combo Is patient in pain?: No Allergies adhesive Allergy (Verified 12/11/23 16:05) Rashadhesive tape (tape) Allergy (Verified 12/11/23 16:05) NEEDS FOLLOW-UPlatex Allergy (Verified 12/11/23 16:05) Hives Medications ?Medication ?Instructions ?Recorded ?Confirmed ?Type NK 12/11/23 12/11/23 History Post menopausal: No Patient : No : No PFSH Medical History (Updated 12/11/23 @ 08:53 by Kaylene Abernathy) DVT (deep venous thrombosis) PCOS (polycystic ovarian syndrome) Kidney stones UTI (urinary tract infection) Back problem Wears glasses Anxiety Migraine headache Gastric reflux Smoker Shortness of breath on exertion Leg cramps DNS (deviated nasal septum) Back pain Anemia Surgical History History of endometrial ablation Hx of ovarian cystectomy Hx of tubal ligation Hx of section Family History Grandmother Breast cancer, Onset Age: 70Mother Breast cancer, Onset Age: 50Other Anemia Anxiety Arthritis Asthma CVA (cerebral vascular accident) Depression Diabetes Hypertension Liver disease Lung cancer Mental disorder Social History number of children: 2 current occupational status: employed Smoking Status: Current every day smoker tobacco type: cigarettes alcohol intake: never substance use type: does not use caffeine: Yes what type of physical activity do you participate in: none seatbelt use: always do you feel safe at home: Yes additional social history: [place] HPI TRH left ooph cysto Bar combo Details: GOPI FRY is a 33 year old ( sections) who presents preoperative exam for a scheduled hysterectomy for heavy irregular periods and severe dysmenorrhea. She has undergone multiple procedures for removal of ovarian cysts, a hysteroscopy uterine polypectomy, 2 sections, a laparoscopic bilateral salpingectomy, and then after failing nuvaring, iud, ocps, and nexplanon, she had a lindsay ablation procedure. She states that now her menses are anywhere from every 3 weeks to 2 months but she has severe cramping pain between and during bleeding cycles. She would like to undergo a hysterectomy. Another problems she has is leaking urine with laughing, coughing, sneezing. She would like to discuss treatment for this as well History 4 Elective abortions Hx Para 2 Spontaneous abortions 2 Hx # Term Pregnancies Ectopic pregnancies Hx # Pregnancies Multiple births # of living children 2 Past Pregnancies Del. Date Name GA/Weeks Outcome Route Bth Weight Infant Gen Labor Lgth Anesthesia Del Locatn Provider FOB Unknown Luis 2013 Unknown Sarah 2012 ROS Const ROS Unobtainable: All systems reviewed & are unremarkable except as noted in H Resp Resp: Reports system reviewed and no additional complaints, except as documented; Denies cough GI GI: Reports as per HPI Psych Psych: Reports system reviewed and no additional complaints, except as documented Exam Const General: cooperative, healthy appearing, comfortable and no acute distress Resp Effort & Inspection: normal respiratory effort Skin General: no rashes or lesions noted Psych Appearance: grossly normal Speech and Movement: speech and movement normal Coding Level of Care Code Off vis,est,level 4 Diagnoses Pelvic pain R10.2 Menorrhagia N92.0 Moderate episode of recurrent major depressive disorder F33.1 Depression Type: major depressive disorder Major depression recurrence: recurrent Active/Remission status: currently active Major depression episode severity: moderate Generalized anxiety disorder F41.1 PCOS (polycystic ovarian syndrome) E28.2 Assessment and Plan Assessment and Plan (1) Pelvic pain: Status: Acute (2) Menorrhagia: Status: Acute (3) Depression: Status: Acute Qualifiers: Depression Type: major depressive disorder Major depression recurrence: recurrent Active/Remission status: currently active Major depression episode severity: moderate Qualified Code(s): F33.1 - Major depressive disorder, recurrent, moderate (4) Generalized anxiety disorder: Status: Acute (5) PCOS (polycystic ovarian syndrome): Status: Acute Plan After discussing the patient's diagnosis and treatment plan options, patient wishes to proceed with surgical management. I have discussed with the patient the risks, benefits, and alternatives of the procedure which include but are not limited to risks of anesthesia, bleeding, infection, possible damage to bowel, bladder, or surrounding vasculature which could lead to additional surgery to evaluate any complications. Patient agrees to procedure and wishes to proceed. ACOG/uptodate references given for additional information regarding procedure. 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 .
[2023-12-25] MEDS: Lactated Ringers 1,000 ML 15 ML IV (10:56)
[2023-12-25] MEDS: dexAMETHasone 4 MG/ML Vial 8 MG IV (10:57)
[2023-12-25] MEDS: Acetaminophen 500 MG Tablet 1000 MG PO (10:58)
[2023-12-25] MEDS: Celecoxib 200 MG Capsule 400 MG PO (10:58)
[2023-12-25] MEDS: Gabapentin 600 MG Tablet PO (10:58)
[2023-12-25 11:00] LABS: Hematocrit 45.6 % (37-47); Hemoglobin 15.2 g/dL (12.0-15.0); Mean Corp Hgb Conc 33.3 g/dL (32-36); Mean Platelet Vol. 11.7 fl (6.2-12.0); Platelet Count 243 K/mm3 (150-450); RBC Distribution Width CV 13.4 % (11.6-14.6); Red Blood Count 5.24 M/mm3 (4.2-5.4); White Blood Count 6.8 K/mm3 (4.4-11.0)
[2023-12-25 11:03] LABS: Internal QC Validated? YES +Cl - CLEAR BKGD; Pregnancy, Urine Negative Negative
[2023-12-25 11:17] LABS: Bedside Glucose 83 mg/dL (74-106)
[2023-12-25 11:19] LABS: Magnesium 2.1 mg/dL (1.6-2.6)
[2023-12-25] MEDS: Magnesium 1 GM over 15 mins IV (11:46)
--- NOTE | 2023-12-25 12:05 | PRE.ANES_ITS ---
ASA Classification* ASA Classification ASA Classification: 2 Assessment & Plan Anesthesia* Anesthesia Assessment Anesthesia Assessment: Discussed sedation and/or anesthesia options, risks, benefits, and alternatives with patient/parents/legal guardian/POA. Questions invited. The patient/parents/legal guardian/POA seems to understand and agrees to proceed with anesthesia plan. Reviewed the physical assessment, medical history, allergy history and patient home medications list prior to surgery/procedure/anesthetic and documented any changes. Performed airway and anesthesia risk assessments. Anesthesia Type Anesthesia Type: General History Source History Obtained from:: Patient and Chart Anesthesia Focused Assessment* Temperature: 98 F Pulse Rate: 81 Blood Pressure: 120/96 Respiratory Rate: 16 Pulse Ox: 97 Oxygen Delivery Method: Room Air Airway Assessment Mouth opens: >3 cm Mallampati Score: II Teeth Condition: Intact Neck Range of motion (ROM): Full ROM Focused Labs Anesthesia Preop lab: CBC WBC 6.8 K/mm3 (4.4-11.0) 12/25/23 10:45 RBC 5.24 M/mm3 (4.2-5.4) 12/25/23 10:45 Hgb 15.2 g/dL (12.0-15.0) H 12/25/23 10:45 Hct 45.6 % (37-47) 12/25/23 10:45 Plt Count 243 K/mm3 (150-450) 12/25/23 10:45 CHEMISTRY Potassium 3.5 mmol/L (3.5-5.1) 05/05/22 01:50 Sodium 139 mmol/L (136-145) 05/05/22 01:50 Magnesium 2.1 mg/dL (1.6-2.6) 12/25/23 10:45 BUN 12 mg/dL (7-18) 05/05/22 01:50 Creatinine 0.83 mg/dL (0.55-1.02) 05/05/22 01:50 Glucose 99 mg/dL (74-106) 05/05/22 01:50 POC Glucose 83 mg/dL (74-106) 12/25/23 10:58 TSH 2.64 uIU/mL (0.358-3.74) 05/05/22 01:50 COAG PT 12.2 SECONDS (11.9-14.4) 01/26/13 12:09 Urine Test Negative Negative 12/25/23 10:30 Pre-Assessment Diagnosis/Proposed Procedure Planned Operative Procedure(s): (L) Lap Robotic Hysterectomy, Left Oophorectomy, Cystoscopy Anesthesia History 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 When Was Last Pacemaker Check QUESTION #4 FULL TEXT: You/Your Family Experience fever (hyperthermia) with Anesthesia Last Oral Intake Last Oral intake: Last Oral Intake NPO since 19:00 12/25/23 10:50 Meds taken in AM with sips of No 12/25/23 10:50 water? 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 Female Yes 12/11/23 08:22 HX of Motion Sickness No 12/11/23 08:22 HX of N/V After Surgery Yes 12/11/23 08:22 Non-Smoker No 12/11/23 08:22 Duration of Surgery greater Yes 12/11/23 08:22 than 60 minutes Number of Risk Factors 3 12/11/23 08:22 PONV Score Moderate Risk 12/11/23 08:22 Height & Weight Height & Weight: Anesthesia: Height & Weight Height 5 ft 2 in 12/25/23 10:50 Weight: 79 kg 12/25/23 10:50 Body Mass Index (BMI) 31.8 12/25/23 10:50 Respiratory Assessment Respiratory Assessment - hotel dining room cashier: Respiratory Tract Infection Hx - hotel dining room cashier Hx Respiratory Tract Infection No 12/11/23 08:22 STOP Sleep Apnea STOP Sleep Apnea - hotel dining room cashier: STOP Sleep Apnea - hotel dining room cashier Hx Hypertension No 12/11/23 08:22 Hx Sleep Apnea No 12/11/23 08:22 CPAP BIPAP Do you snore loudly (louder No 12/11/23 08:22 than talking or can be heard Do you often feel tired/ No 12/11/23 08:22 fatigued/ sleepy during daytime? Has anyone observed you stop No 12/11/23 08:22 breathing during sleep? STOP Results Negative 12/11/23 08:22 QUESTION #5 FULL TEXT : Do you snore loudly (louder than talking or can be heard through closed doors)? 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 Specify any problems Hx of Preganancy in last 3 No 12/11/23 08:22 Months [facility]23 08:22 & Questions: Date: 12/11/23 12/11/23 08:22 Time: 08:29 12/11/23 08:22 Patient unable to answer at this time (ie. confused, unrespo /Reproduction History /Reproductive History - hotel dining room cashier: /Reproductive Hx- hotel dining room cashier Hx Now No 12/11/23 08:22 Gestational Age (in weeks): EDC: Hx Hx Para Hx Section SAB No 12/11/23 16:05 Active Medications Active Medications: Current Medications Generic Name Dose Route Start Last Admin Trade Name Freq PRN Reason Stop Dose Admin Acetaminophen 1,000 mg 12/25/23 13:00 12/25/23 10:58 Acetaminophen 500 Mg Tablet PO 12/25/23 13:01 1,000 mg PREOP ONE Administration Celecoxib 400 mg 12/25/23 13:00 12/25/23 10:58 Celecoxib 200 Mg Capsule PO 12/25/23 13:01 400 mg X1 ONE Administration Dexamethasone Sodium Phosphate 8 mg 12/25/23 13:00 12/25/23 10:57 Dexamethasone 4 Mg/Ml Vial IV 12/25/23 13:01 8 mg X1 ONE Administration Gabapentin 600 mg 12/25/23 13:00 12/25/23 10:58 Gabapentin 600 Mg Tablet PO 12/25/23 13:01 600 mg PREOP ONE Administration Lactated Ringer's 1,000 mls @ 70 mls/hr 12/25/23 13:00 IV .[id number] FAHAD Cefazolin Sodium 2 gm/ N/A 20 mls @ 400 mls/hr 12/25/23 13:00 IV 12/25/23 13:02 PREOP ONE Lactated Ringer's 1,000 mls @ 15 mls/hr 12/25/23 10:45 12/25/23 10:56 IV 12/31/23 00:04 15 mls/hr .Q48H FAHAD Administration Protocol Insulin Human Lispro 0 unit 12/25/23 09:45 Insulin Lispro 100 Unit/Ml Insuln.Pen SC Q4H PRN PRN BG >/= 180, SEE PROTOCOL Protocol Ondansetron HCl 4 mg 12/25/23 13:00 Ondansetron 4 Mg/2 Ml Vial IV 12/25/23 13:01 X1 ONE PFSH Medical History DVT (deep venous thrombosis) PCOS (polycystic ovarian syndrome) Kidney stones UTI (urinary tract infection) Back problem Wears glasses Anxiety Migraine headache Gastric reflux Smoker Shortness of breath on exertion Leg cramps DNS (deviated nasal septum) Back pain Anemia Home Medications ?Medication ?Instructions ?Recorded ?Last Taken ?Type NK 12/11/23 Unknown History Allergy/AdvReac Type Severity Reaction Status Date / Time adhesive Allergy Rash Verified 12/11/23 16:05 adhesive tape (tape) Allergy NEEDS Verified 12/11/23 16:05 FOLLOW-UP latex Allergy Hives Verified 12/11/23 16:05 Family History Grandmother Breast cancer, Onset Age: 70 Mother Breast cancer, Onset Age: 50 Other Anemia Anxiety Arthritis Asthma CVA (cerebral vascular accident) Depression Diabetes Hypertension Liver disease Lung cancer Mental disorder Surgical History History of endometrial ablation Hx of ovarian cystectomy Hx of tubal ligation Hx of section Social History number of children: 2 current occupational status: employed Smoking Status: Current every day smoker tobacco type: cigarettes alcohol intake: never substance use type: does not use caffeine: Yes what type of physical activity do you participate in: none seatbelt use: always do you feel safe at home: Yes additional social history: [place] Review of Systems (Anesthesia) ROS Narrative System reviewed and no additional complaints, except as documented.
--- NOTE | 2023-12-25 12:18 | PCM.DC ---
Discharge Instructions Diet Discharge Diet: No restrictions Activity Discharge Activity: May Not Drive and May Shower May resume sexual activity in: 6 weeks Weight Bearing Status: Full weight bearing Lifting Restrictions: 10 pounds for 2 weeks Dressing / Incision Call your doctor if your incision/area has: Continuous Slow Oozing, Sudden Increased Bleeding, Increased Pain/ Swelling, Increased Redness and Foul Smelling Discharge Call your doctor if you observe: Fever of 101 or Higher, Using more than 1 pad per hour, Shortness of breath, Chest pain and Uncontrolled pain Suture Line Care: Avoid Pulling/Pushing and Avoid Pinching/Bending Remove Dressing in: 1 week (if present) Cleanse incision/area with: Soap & Water and Keep Dressing Clean & Dry Follow Up Care Please Follow Up With: Kiara Huynh DO When: Call to make an appointment with your doctor for a postop visit in 2 and 6 weeks Test Results: Test results from this visit will be discussed in further detail at your follow-up appointment, if applicable. Discharge Plan Admission Primary Reason for Your Visit: hysterectomy Attending Provider: Kiara Huynh Primary Care Provider: Gume Mejia Instructions Print Language: Lithuanian Discharge Orders/Prescriptions Prescriptions: New ibuprofen 800 mg tablet 800 mg PO Q8H PRN (Reason: pain) Qty: 30 0RF oxycodone-acetaminophen [Percocet] 5-325 mg tablet 1 tab PO Q4H PRN (Reason: pain) 7 Days Qty: 20 0RF Rx Instructions: 1-2 tabs q 4 hrs as needed for pain Referrals / Follow Up: Gume Mejia MD [Primary Care Provider] - Disposition Disposition (needs filled in before D/C Order can be placed): Home, Self Care
[2023-12-25] MEDS: Cefazolin 2 GM in Syringe IV (12:20)
[2023-12-25] MEDS: Bupivacaine 0.25% 30 ML Vial (14:01)
--- NOTE | 2023-12-25 14:05 | PCM.OPRPT ---
Problems Associated Problem List Diagnoses (1) Pelvic pain: (2) Menorrhagia: (3) PCOS (polycystic ovarian syndrome): Operative Report (Standard) Operative Information Surgery/Procedure Performed: total robotic hysterectomy, cystoscopy Surgeon: Kiara Huynh Date of Procedure: 12/25/23 Procedure Start Time: 12:45 Procedure Stop Time: 14:09 Pre-Operative Diagnosis: pelvic pain, menorrhagia, history of 2 sections Post-Operative Diagnosis: same as preop Select all DRAINS/GRAFTS/IMPLANTS that apply: None Type of Anesthesia: General Estimated Blood Loss: 30 cc Specimen collected: Yes Description of specimen(s) removed: uterus and cervix Description of surgery: Reason for surgery: This is a 33-year-old G2, P2 who presented to my office with history of heavy periods and pelvic pain. the planned procedure is for a robotic hysterectomy the risks benefits and alternatives were discussed with the patient the patient had a clear understanding of the procedure and a consent form was signed. Procedure: The patient was placed in the dorsal low lithotomy position and prepped and draped in the normal sterile fashion both abdominally and in the perineum. Her legs were placed in stirrups a Mojica catheter was inserted into the urethra without difficulty. A weighted speculum was placed in the vagina and a single-tooth tenaculum was used to grasp the anterior lip of the cervix. An advincPensqr uterine manipulator was inserted through the cervix without complication. It was then tied into place at the 2 and 10:00 locations on the cervix. Gloves were changed and attention was turned towards the abdomen. Approximately 23 cm above the pubic symphysis in the midline, and after Marcaine injection, a 8 mm incision was made. An 8 mm trocar was inserted through the laparoscope, then inserted into the abdomen under direct visualization using the laparoscope. Good abdominal placement was noted and no complications were appreciated. An air seal device was utilized to create pneumoperitoneum. At 12 cm lateral to the midline on the left and right sides 8 mm accessory ports were placed. Next a left upper quadrant 8 mm surgical first assistant port site was placed. The patient was placed in steep Trendelenburg position. The robot was docked. The hysterectomy was initiated first by taking down the round ligament on each side using the vessel sealer device. The broad ligament was then and taken down using the vessel sealer device. Next the bladder flap was taken down without complication, although there was a moderate amount of scar tissue adherent from the bladder to the anterior uterine serosa.. This was done using monopolar cautery to the level of the cervical vaginal junction. After the bladder flap was created, uterine vessels were then isolated and cauterized using the vessel sealer device and EndoShears. At this point the uterine vessels were taken down further starting from the ascending branch, dissecting along the edges of the cervix to the level of the cervical vaginal junction with hemostasis appreciated. The cervical vaginal junction was then using monopolar cautery in a circumferential pattern across the superior aspect of the cervix. The specimen was delivered through the vagina and sent to pathology. The remaining vaginal cuff was then closed using a V lock suture. This was performed in a running technique. Excellent hemostasis was obtained and good closure was noted. Irrigation was then performed. All operative sites were noted to be hemostatic. A cystoscopy was performed with a 70 degree cystoscope through the urethra into the bladder without complication. The bladder was instilled with approximately 250 cc of normal saline. Intraoperative images were made. Ureteral orifices and jets were identified. No suture material was appreciated in the bladder. The bladder was then drained and cystoscope was removed. The abdominal cavity was again examined using the laparoscope after the robot was undocked. All operative sites were noted to be hemostatic. The trochars were removed under direct visualization without complication and pneumoperitoneum was reduced. At this point the skin was then closed using 4-0 Monocryl subcuticular stitch and sealed with surgical glue. The patient tolerated the procedure well sponge lap and needle counts were correct x2 the patient was taken to the recovery room in stable condition. Surgical Findings: scar tissue of uterus to bladder, normal uterus, cervix and ovaries. 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
--- NOTE | 2023-12-25 14:29 | PCM.POST.ANE ---
Anesthesia: Postop Eval I Current Vital Signs Temperature: 98.5 F Pulse Rate: 87 Blood Pressure: 108/62 Respiratory Rate: 20 Pulse Ox: 91 Oxygen Delivery Method: Room Air Assessment Airway patent: Yes Spontaneous unlabored respirations: Yes Mental status: Asleep nausea: No Vomiting: No Anesthesia Complication: No Fluid Hydration Crystalloid volume administer (ml): 1,300 Total IV fluid infused: 1,300 Progress Note Anesthesia document: Postop Eval 1 completed: Yes
--- NOTE | 2023-12-25 16:21 | PCM.POSTANE2 ---
Anesthesia Postop Eval I Sum Postop Eval Completion status Anesthesia document: Postop Eval 1 completed: Yes Anesthesia Postop Eval I Summary Anesthesia Postop Eval I Summary: Anesthesia Postop Eval I: Assessment Summary Airway patent Yes 12/25/23 14:30 MORTGAGE [email or web address] Spontaneous unlabored Yes 12/25/23 14:30 MORTGAGE [email or web address] [email or web address] respirations Mental status Asleep 12/25/23 14:30 MORTGAGE [email or web address] [email or web address] nausea No 12/25/23 14:30 MORTGAGE LOAN [email or web address] Vomiting No 12/25/23 14:30 MORTGAGE [email or web address] [email or web address] Anesthesia Postop Eval I: Fluid Summary Crystalloid volume administer 1,300 12/25/23 14:30 MORTGAGE [email or web address] [email or web address] (ml) Colloids volume administered ( ml) Blood Product volume administered (ml) Total IV fluid infused 1,300 12/25/23 14:30 MORTGAGE LOAN [email or web address] Anesthesia Postop Eval I: Summary Notes Anesthesia Complication No 12/25/23 14:30 MORTGAGE LOAN [email or web address] Anesthesia Complication Comment: Post-operative progress note Anesthesia: Postop Eval II Evaluation Mental status: Awake Pain Level: 1 nausea: No Vomiting: No
--- NOTE | 2023-12-25 16:21 | POSTOPAN2_ITS ---
Anesthesia Postop Eval I Sum Postop Eval Completion status Anesthesia document: Postop Eval 1 completed: Yes Anesthesia Postop Eval I Summary Anesthesia Postop Eval I Summary: Anesthesia Postop Eval I: Assessment Summary Airway patent Yes 12/25/23 14:30 [email or web address] Spontaneous unlabored Yes 12/25/23 14:30 [email or web address] [email or web address] respirations Mental status Asleep 12/25/23 14:30 [email or web address] nausea No 12/25/23 14:30 [email or web address] [email or web address] Vomiting No 12/25/23 14:30 [email or web address] [email or web address] Anesthesia Postop Eval I: Fluid Summary Crystalloid volume administer 1,300 12/25/23 14:30 [email or web address] (ml) Colloids volume administered ( ml) Blood Product volume administered (ml) Total IV fluid infused 1,300 12/25/23 14:30 [email or web address] Anesthesia Postop Eval I: Summary Notes Anesthesia Complication No 12/25/23 14:30 [email or web address] [email or web address] Anesthesia Complication Comment: Post-operative progress note Anesthesia: Postop Eval II Evaluation Mental status: Awake Pain Level: 1 nausea: No Vomiting: No
== END 2023-12-25 17:46 | disposition home or self-care (01) ==
LOC: SDC 10:25 → AC 10:26
PROVIDERS: PCP Family Medicine; Referring Provider Obstetrics & Gynecology; Visit Provider Obstetrics & Gynecology
PROC: 0UT94ZZ Resection of Uterus, Percutaneous Endoscopic Approach (ICD-10-PCS; CPT 58570; principal; 2023-12-25 12:15)
DX: N80.03 Adenomyosis of the uterus (principal); F33.1 Major depressive disorder, recurrent, moderate; Z79.4 Long term (current) use of insulin; N92.0 Excessive and frequent menstruation with regular cycle; F41.1 Generalized anxiety disorder; F17.210 Nicotine dependence, cigarettes, uncomplicated; E28.2 Polycystic ovarian syndrome; K21.9 Gastro-esophageal reflux disease without esophagitis; N94.6 Dysmenorrhea, unspecified; N32.89 Other specified disorders of bladder; N72 Inflammatory disease of cervix uteri
CPT/HCPCS: 58570; 00840; 81025; 82962; 83735; 85027; 86850; 86900; 86901; 88307; J7120; J2405; J3475